=== PATIENT | female | born 1980 | race Caucasian/White ===

== ENCOUNTER 2017-09-21 15:33 | Emergency (ER) | payer OTHER ==
--- NOTE | 2017-09-21 15:44 | PDOC ---
Rapid Medical Evaluation Time Seen by Provider: 09/21/17 15:41 Medical Evaluation: Allergies Allergy/AdvReac Type Severity Reaction Status Date / Time No Known Allergies Allergy Verified 04/17/14 21:23 I have performed a brief in-person evaluation of this patient. The patient presents with a chief complaint of: chest tightness with movement/ working out, palpitations, wheezing x "a few weeks". 1/2 pack per day smoker. prior history of anxiety with similar symptoms - was worked up by cleaning team member everything normal. wants an EKG Pertinent physical exam findings: lungs are CTA. RRR I have ordered the following: hcg, ekg The patient will proceed to the ED for further evaluation.
[2017-09-21 15:49] VITALS: BMI 24.0
[2017-09-21] MEDS ORDERED: ALBUTEROL SO4 2.5/IPRATROPIUM 0.5 INH SOL 3 ML VIAL.NEB. NEB ONE ×2 (16:47→17:01)
--- NOTE | 2017-09-21 16:52 | PDOC ---
History of Present Illness - General Chief Complaint: Shortness of Breath Stated Complaint: CHEST TIGHTNESS, WHEEZING Time Seen by Provider: 09/21/17 15:41 History Source: Patient Exam Limitations: No Limitations - History of Present Illness Initial Comments: 09/21/17 19:19 Patient is a 36 year old female with a significant past medical history of Asthma (as child), who presents to the ED wit complaints of shortness of breath that began 2 weeks ago. Patient reports experiencing intermittent episodes of Sob and associated chest tightness that she states has become more frequent over time. She reports experiencing chest tightness and associated palpitations , that is increased in intensity when smoking cigarettes, drinking alcohol and exercising. Patient reports experiencing intermittent episodes of fatigue but is unsure if it is related to her chest tightness. Patient states she has been dieting heavily for the last few months and is worried that it is related to her symptoms. She reports ingestion on average 700 calories per day. Patient states she has tried to see her PCP twice in last month, but states she is unable to schedule appointment until October. Denies nausea, vomiting. Denies fevers, chills. Denies contact with sick individuals, out of state travelling. Denies diarrhea, constipation, dysuria, hematuria. Denies any other symptoms. Pt denies any leg swelling, hemoptysis. Not on OCPs. Allergies: None Social history: Current smoker. Social drinker. No illicit drugs. Surgical history: none PMD: Dr. James Pedroza Past History - Past Medical History Allergies/Adverse Reactions: Allergies Allergy/AdvReac Type Severity Reaction Status Date / Time No Known Allergies Allergy Verified 09/21/17 15:41 Home Medications: Ambulatory Orders Albuterol Sulfate Inhaler - [Ventolin HFA Inhaler -] 1 - 2 inh PO Q4H PRN #1 inhaler 09/21/17 Asthma: Yes COPD: No - Immunization History Immunization Up to Date: Yes - Suicide/Smoking/Psychosocial Hx Smoking History: Current every day smoker Have you smoked in the past 12 months: Yes Number of Cigarettes Smoked Daily: 10 Information on smoking cessation initiated: No Hx Alcohol Use: Yes (occasion) Substance Use Type: None Review of Systems - Review of Systems Able to Perform ROS?: Yes Comments:: 09/21/17 19:19 CONSTITUTIONAL: +Fatigue No reported: Fever, Chills, Diaphoresis, Malaise, Loss of Appetite HEENT: No reported: Rhinorrhea, Nasal Congestion, Throat Pain, Throat Swelling, Difficulty Swallowing, Mouth Swelling, Ear Pain, Eye Pain, Visual Changes CARDIOVASCULAR: +chest tightness. +Palpitations. No reported:, Syncope,, Irregular Heart Rate, Lightheadedness, Peripheral Edema RESPIRATORY: +Shortness of breath. No reported: Cough, SOB with Exertion, Orthopnea, Wheezing, Stridor, Hemoptysis GASTROINTESTINAL: No reported: Abdominal pain, Abdominal Distension, Nausea, Vomiting, Diarrhea, Constipation, Melena, Hematochezia GENITOURINARY: No reported: Dysuria, Frequency, Urgency, Hesitancy, Flank Pain, Genital Pain MUSCULOSKELETAL: No reported: Myalgia, Arthralgia, Joint Swelling, Back pain, Neck Pain SKIN: No reported: Rash, Itching, Pallor HEMATOLOGIC/IMMUNOLOGIC: No reported: Easy Bleeding, Easy Bruising, Lymphadenopathy, Frequent infections ENDOCRINE: No reported: Unexplained Weight Gain, Unexplained Weight Loss, Heat Intolerance , Cold Intolerance NEUROLOGIC: No reported: Headache, Focal Weakness, Paresthesias, Vertigo, Lightheadedness, Unsteady Gait, Seizure, Mental Status Changes, Incontinence PSYCHIATRIC: No reported: Anxiety, Depression *Physical Exam - Vital Signs Last Vital Signs Temp Pulse Resp BP Pulse Ox 97.7 F 81 19 127/71 98 09/21/17 15:42 09/21/17 15:42 09/21/17 15:42 09/21/17 15:42 09/21/17 15:42 - Physical Exam Comments: 09/21/17 19:20 GENERAL: The patient is awake, alert, and fully oriented, Nontoxic - in no acute distress. HEAD: Normocephalic, atraumatic. EYES: extraocular movements intact, sclera anicteric, conjunctiva clear. ENT: Normal voice, Moist mucous membranes. NECK: Normal range of motion, No JVD LUNGS: +scattered wheezing. +Speaking in complete sentences. No respiratory distress. no rhonchi, no rales. HEART: Regular rate and rhythm, normal S1 and S2 without murmur, rub or gallop. ABDOMEN: Soft, nontender, normoactive bowel sounds. No guarding, no rebound. No masses. No CVA tenderness EXTREMITIES: +No accessory muscle use. No pitting edema. Negative homans sign Normal range of motion, no edema. No clubbing or cyanosis. No cords, erythema, or tenderness. NEUROLOGICAL: No facial asymmetry, Normal speech, normal gait. PSYCH: Normal mood, normal affect. SKIN: Warm, Dry, normal turgor. Heart Score/ECG Review - ECG Impressions Comment:: 09/21/17 18:49 Twelve-lead EKG was performed and reviewed by me. There is normal sinus rhythm with a normal rate. Rate of 82 The intervals are normal. There are no ST or T wave abnormalities. ED Treatment Course - LABORATORY CBC & Chemistry Diagram: 09/21/17 17:06 09/21/17 17:06 Medical Decision Making - Medical Decision Making 09/21/17 16:48 36y F no pmhx presents iwth complaint of chest tightness and sob. The patient denies any chest pain, endorses occasional chest tightness and shortness of breath, patient does have mild coughing occasionally but this is chronic for the pt and not significant sdifferent from her baseline. no recent uri. she also endorses an extreme diet for the past few months where she is only eating around 700 calories on exam pt has scattered wheezing in her lungs. she is no acut distress abd soft nontender cardiac exam unremarkable suspect asthma/copd will give her a neb will ck basic labs to r/o anemia and metabolic derangement due to her extremit diet A portion of this note was documented by scribe services under my direction. I have reviewed the details of the note, within reason, and agree with the documentation with the following case summary and management plan written by me 09/21/17 18:50 The patient's labs were reviewed KG reviewed Patient is feeling improved, I will discharge patient with PMD follow-up and return precautions Give the patient an albuterol as needed Will defer nebulizers as the patient improved after 1 neb. I discussed the physical exam findings, ancillary test results and final diagnoses with the patient. I answered all of the patient's questions. The patient was satisfied with the care received and felt comfortable with the discharge plan and treatment plan. The patient will call their primary care physician within 24 hours to arrange follow-up and will return to the Emergency Department with any new, persistent or worsening symptoms. *DC/Admit/Observation/Transfer Diagnosis at time of Disposition: Wheezing - Discharge Dispostion Disposition: HOME Condition at time of disposition: Improved Admit: No - Prescriptions Prescriptions: Albuterol Sulfate Inhaler - [Ventolin HFA Inhaler -] 1 - 2 inh PO Q4H PRN #1 inhaler PRN Reason: Shortness Of Breath - Referrals Referrals: James Pedroza MD [Primary Care Provider] - - Patient Instructions Printed Discharge Instructions: DI for Asthma -- Adult Additional Instructions: Return to the emergency department immediately with ANY new, persistent or worsening symptoms. You MUST call and follow up with your doctor tomorrow for further evaluation of your symptoms. Results were discussed with you. Please make sure your doctor reviews the results of your emergency evaluation. If you had any xrays during your visit, it was read preliminarily by myself, a Radiologist will review it and if there are any additional findings we will call you. - Post Discharge Activity
[2017-09-21 17:16] LABS: BASO % 0.9 % (0-2.0); EOS % 0.9 % (0-4.5); HEMATOCRIT 37.9 % (32.4-45.2); HEMOGLOBIN 12.4 GM/dL (10.7-15.3); LYMPH % 22.7 % (8-40); MCH 29.3 pg (25.7-33.7); MCHC 32.8 g/dl (32.0-36.0); MEAN CELL VOLUME 89.5 fl (80-96); MEAN PLT VOLUME 6.8 fl (7.5-11.1); MONO % 3.2 % (3.8-10.2); NEUT % 72.3 % (42.8-82.8); PLATELET COUNT 275 K/MM3 (134-434); RBC 4.23 M/mm3 (3.60-5.2); RDW 13.3 % (11.6-15.6); WHITE BLOOD COUNT 11.4 K/mm3 (4.0-10.0)
[2017-09-21 17:43] VITALS: BP 106/60; PULSE 80; TEMP 98.5
[2017-09-21 17:55] LABS: ALBUMIN 3.7 g/dl (3.4-5.0); ALK PHOS 69 U/L (45-117); ANION GAP 6 (8-16); BILIRUBIN,TOTAL 0.4 mg/dL (0.2-1.0); BLOOD UREA NITROGEN 8 mg/dL (7-18); CALCIUM 8.8 mg/dL (8.5-10.1); CHLORIDE 102 mmol/L (98-107); CO2 29 mmol/L (21-32); CREATININE 0.8 mg/dL (0.55-1.02); GLUCOSE,RANDOM 89 mg/dL (74-106); POTASSIUM 4.2 mmol/L (3.5-5.1); SGOT/AST 15 U/L (15-37); SGPT/ALT 17 U/L (12-78); SODIUM 137 mmol/L (136-145); TOT PROT 7.3 g/dl (6.4-8.2)
--- NOTE | 2017-09-23 11:11 | EKG ---
Test Reason : Blood Pressure : / mmHG Vent. Rate : 082 BPM Atrial Rate : 082 BPM P-R Int : 142 ms QRS Dur : 090 ms QT Int : 376 ms P-R-T Axes : 052 091 027 degrees QTc Int : 439 ms NORMAL SINUS RHYTHM RIGHTWARD AXIS BORDERLINE ECG NO PREVIOUS ECGS AVAILABLE Confirmed by CELESTINE BHARDWAJ, MCKAYLA ([id number]) on 09/23/2017 11:10:43 AM Referred By: Confirmed By:MCKAYLA SPRAGUE MD
== END 2017-09-21 19:05 | disposition home or self-care (01) ==
LOC: JER 15:33
PROC: 3E0F7GC Introduction of Other Therapeutic Substance into Respiratory Tract, Via Natural or Artificial Opening (ICD-10-PCS; principal; 2017-09-21)
DX: R06.2 Wheezing (principal); Z87.09 Personal history of other diseases of the respiratory system
CPT/HCPCS: 36415; 80053; 84703; 85025; 93005; 93010; 94640; 99282-25

== ENCOUNTER 2018-02-28 14:56 | Emergency (ER) | payer OTHER ==
--- NOTE | 2018-02-28 15:04 | PDOC ---
Rapid Medical Evaluation Time Seen by Provider: 02/28/18 14:59 Medical Evaluation: Allergies Allergy/AdvReac Type Severity Reaction Status Date / Time No Known Allergies Allergy Verified 09/21/17 15:41 02/28/18 14:59 Pt with PMH of GERD presents to the ED with two days of chest tightness. She states that the pain comes and goes. She states she feels a bubbling feeling every hour. Smokes half a pack a day. Exam: VSS, AAOx3, RRR, CTAB Orders: EKG, CBC, CMP, Troponin,PT/INR, urine, CXR, iv insert Pt to proceed to the ED for further evaluation Discharge Disposition - Diagnosis Chest pain - Referrals - Patient Instructions - Post Discharge Activity
[2018-02-28 15:34] LABS: BASO % 1.1 % (0-2.0); EOS % 1.2 % (0-4.5); HEMATOCRIT 34.3 % (32.4-45.2); HEMOGLOBIN 11.3 GM/dL (10.7-15.3); LYMPH % 20.8 % (8-40); MEAN CELL VOLUME 87.7 fl (80-96); MEAN PLT VOLUME 6.8 fl (7.5-11.1); MONO % 4.8 % (3.8-10.2); NEUT % 72.1 % (42.8-82.8); PLATELET COUNT 318 K/MM3 (134-434); RBC 3.91 M/mm3 (3.60-5.2); RDW 13.8 % (11.6-15.6)
[2018-02-28 15:59] LABS: ALBUMIN 3.7 g/dl (3.4-5.0); ANION GAP 9 (8-16); BLOOD UREA NITROGEN 12 mg/dL (7-18); CALCIUM 8.3 mg/dL (8.5-10.1); CHLORIDE 105 mmol/L (98-107); CO2 24 mmol/L (21-32); CREATININE 0.8 mg/dL (0.55-1.02); GLUCOSE,RANDOM 84 mg/dL (74-106); POTASSIUM 3.8 mmol/L (3.5-5.1); SGOT/AST 18 U/L (15-37); SGPT/ALT 23 U/L (12-78); SODIUM 138 mmol/L (136-145)
[2018-02-28 16:00] LABS: URINE APPEARANCE SLCLOUDY; URINE BILIRUBIN NEGATIVE (<2.0 mg/dL); URINE COLOR YELLOW; URINE GLUCOSE (UA) NEGATIVE (NEGATIVE); URINE KETONE NEGATIVE (NEGATIVE); URINE NITRITE NEGATIVE (NEGATIVE); URINE PROTEIN NEGATIVE (NEGATIVE); URINE UROBILINOGEN NEGATIVE mg/dL (0.2-1.0)
[2018-02-28 16:03] LABS: ALK PHOS 70 U/L (45-117); BILIRUBIN,TOTAL 0.7 mg/dL (0.2-1.0); TOT PROT 7.3 g/dl (6.4-8.2)
[2018-02-28 16:04] LABS: INR 1.12 (0.82-1.09); PROTHROMBIN TIME (PATIENT) 12.7 SEC (9.7-13.0)
[2018-02-28 16:09] LABS: URINE LEUK ESTERASE 2+ (NEGATIVE)
--- NOTE | 2018-02-28 16:15 | PDOC ---
Attending Attestation - HPI HPI: 02/28/18 17:18 The patient is a 37 year old female with history of cigarette smoking who presents to the ED complaining of intermittent palpitations. No chest pain, lightheadedness, or shortness of breath. No peripheral edema. No headache or blurred vision. Denies recent travel, long periods of immobilization, or OCP use. Does endorse increased caffeine, EtOH consumption recently. - Physicial Exam PE: 02/28/18 17:24 Constitutional: Awake, alert, oriented. No acute distress. Head: Normocephalic. Atraumatic Eyes: PERRL. EOMI. Conjunctivae are not pale. ENT: Mucous membranes are moist and intact. Posterior pharynx without exudates or erythema. Uvula midline. Neck: Supple. Full ROM. No lymphadenopathy. Cardiovascular: Regular rate. Regular rhythm. S1, S2 regular. Distal pulses are 2+ and symmetric. Pulmonary/Chest: No evidence of respiratory distress. Clear to auscultation bilaterally No wheezing, rales or rhonchi. Abdominal: Soft and non-distended. There is no tenderness. No rebound, guarding or rigidity. No organomegaly. No palpable masses. Good bowel sounds. Back: No CVA tenderness. Musculoskeletal: No edema. No cyanosis. No clubbing. Full range of motion in all extremities. Nocalf tenderness. Radial/pedal pulses are intact and 2+ bilaterally Skin: Skin is warm and dry. No petechiae. No purpura. Neurological: Alert and oriented to person, place, and time. Cranial nerves II -XII are grossly intact. Normal speech. Strength is grossly symmetric. No sensory deficits. Psychiatric: Good eye contact. Normal interaction, affect and behavior. - Medical Decision Making 02/28/18 17:24 Documentation prepared by Emma Morton, acting as medical microbiologist for Tamara Jo DO. <Emma Morton - Last Filed: 02/28/18 17:22> - Resident Resident Name: Jhoan Vincent - ED Attending Attestation I have performed the following: I have examined & evaluated the patient, The case was reviewed & discussed with the resident, I agree w/resident's findings & plan, Exceptions are as noted - Medical Decision Making 02/28/18 16:15 I, Dr. Tamara Jo DO, attest that this document has been prepared under my direction and personally reviewed by me in its entirety. I further attest, that it accurately reflects all work, treatment, procedures and medical decision -making performed by me. 02/28/18 17:03 a/p: 37yo female with palpitations -suspect from increased etoh use, caffeine use, soda use, and decreased water intake -no cp -brief fluttering in the chest -no PE risk factors -will send labs, tsh, dimer, ekg, cxr -will monitor and reassess -will hdyrate with ivf hydration 02/28/18 21:05 dimer negative tsh negative stable for d/c to home pt feeling better after ivf hydratin discussed stopping caffeine use and etoh use discussed smoking cessation <Tamara Jo - Last Filed: 02/28/18 21:05> Heart Score/ECG Review - ECG Intrepretation Comment:: 02/28/18 17:05 sinus at 73, R dominguez axis, nl interval, t wave inversions V3-4, no other acute changes <Tamara Jo - Last Filed: 02/28/18 21:05>
[2018-02-28 16:18] VITALS: TEMP 98
[2018-02-28 16:21] LABS: EPI CELLS FEW /HPF (FEW); URINE BACTERIA RARE /hpf (NONE SEEN); URINE MUCUS RARE
[2018-02-28] MEDS ORDERED: SODIUM CHLORIDE 0.9% 1000 ML INFUS.BAG IV ONE (16:49)
--- NOTE | 2018-02-28 17:28 | PDOC ---
History of Present Illness - General Chief Complaint: Chest Pain Stated Complaint: CHEST TIGHTNESS Time Seen by Provider: 02/28/18 14:59 History Source: Patient Exam Limitations: No Limitations - History of Present Illness Initial Comments: 02/28/18 17:21 Patient is a 37F active smoker who is here toady complaining of palpitations over the past several days. She endorses associated anxiety with these episodes of palpitations, and they last for about 5 minutes. Denies chest pain. Endorses shortness of breath with walking up hills. Denies fevers, chills, nausea, vomiting. Denies prior blood clots, leg swelling, control, recent travel. Patient states that she has a PCP Dr Keith for further follow up. Past History - Past Medical History Allergies/Adverse Reactions: Allergies Allergy/AdvReac Type Severity Reaction Status Date / Time No Known Allergies Allergy Verified 02/28/18 15:05 Home Medications: Ambulatory Orders Albuterol Sulfate Inhaler - [Ventolin HFA Inhaler -] 1 - 2 inh PO Q4H PRN #1 inhaler 09/21/17 Asthma: Yes (CHILDHOOD) COPD: No DVT: No - Immunization History Immunization Up to Date: Yes - Suicide/Smoking/Psychosocial Hx Smoking History: Current every day smoker Have you smoked in the past 12 months: Yes Number of Cigarettes Smoked Daily: 10 Information on smoking cessation initiated: Yes 'Breaking Loose' booklet given: 02/28/18 Hx Alcohol Use: Yes (occasion) Substance Use Type: None Review of Systems - Review of Systems Comments:: 02/28/18 17:28 GENERAL/CONSTITUTIONAL: No fever or chills. No weakness. HEAD, EYES, EARS, NOSE AND THROAT: No change in vision. No sore throat. CARDIOVASCULAR: No chest pain or shortness of breath. +palpitatisn RESPIRATORY: No cough, wheezing, or hemoptysis. GASTROINTESTINAL: No nausea, vomiting, diarrhea or constipation. GENITOURINARY: No dysuria, frequency, or change in urination. MUSCULOSKELETAL: No joint or muscle swelling or pain. No neck or back pain. SKIN: No rash NEUROLOGIC: No headache, vertigo, loss of consciousness, or change in strength/ sensation. ENDOCRINE: No increased thirst. No abnormal weight change HEMATOLOGIC/LYMPHATIC: No anemia, easy bleeding, or history of blood clots. ALLERGIC/IMMUNOLOGIC: No hives or skin allergy. *Physical Exam - Vital Signs Last Vital Signs Temp Pulse Resp BP Pulse Ox 98.0 F 74 16 97/81 98 02/28/18 16:17 02/28/18 16:17 02/28/18 16:17 02/28/18 16:17 02/28/18 16:17 - Physical Exam Comments: 02/28/18 17:28 GENERAL: Awake, alert, and fully oriented, in no acute distress HEAD: No signs of trauma, normocephalic, atraumatic EYES: PERRLA, EOMI, sclera anicteric, conjunctiva clear ENT: Auricles normal inspection, hearing grossly normal, nares patent, oropharynx clear without exudates. Moist mucosa NECK: Normal ROM, supple, no lymphadenopathy, JVD, or masses LUNGS: No distress, speaks full sentences, clear to auscultation bilaterally HEART: Regular rate and rhythm, normal S1 and S2, no murmurs, rubs or gallops, peripheral pulses normal and equal bilaterally. ABDOMEN: Soft, nontender, normoactive bowel sounds. No guarding, no rebound. No masses EXTREMITIES: Normal inspection, Normal range of motion, no edema. No clubbing or cyanosis. NEUROLOGICAL: Cranial nerves II through XII grossly intact. Normal speech, normal gait, no focal sensorimotor deficits SKIN: Warm, Dry, normal turgor, no rashes or lesions noted. ED Treatment Course - LABORATORY CBC & Chemistry Diagram: 02/28/18 15:10 02/28/18 15:10 - ADDITIONAL ORDERS Additional order review: Laboratory Results 02/28/18 02/28/18 02/28/18 16:17 15:48 15:48 PT with INR INR Sodium Potassium Chloride Carbon Dioxide Anion Gap BUN Creatinine Creat Clearance w eGFR Random Glucose Calcium Total Bilirubin AST ALT Alkaline Phosphatase Creatine Kinase Creatine Kinase Index CK-MB (CK-2) Troponin I Total Protein Albumin TSH 2.00 Urine Color Yellow Urine Appearance Slcloudy Urine pH 5.0 Ur Specific [place] 1.025 Urine Protein Negative Urine Glucose (UA) Negative Urine Ketones Negative Urine Blood 2+ H Urine Nitrite Negative Urine Bilirubin Negative Urine Urobilinogen Negative Ur Leukocyte Esterase 2+ H Urine WBC (Auto) 1 Urine RBC (Auto) 16 Ur Epithelial Cells Few Urine Bacteria Rare Urine Mucus Rare Urine HCG, Qual Negative 02/28/18 02/28/18 02/28/18 15:30 15:10 15:10 PT with INR 12.70 INR 1.12 Sodium 138 Potassium 3.8 Chloride 105 Carbon Dioxide 24 Anion Gap 9 BUN 12 Creatinine 0.8 Creat Clearance w eGFR > 60 Random Glucose 84 Calcium 8.3 L Total Bilirubin 0.7 AST 18 ALT 23 Alkaline Phosphatase 70 Creatine Kinase Cancelled 228 H Creatine Kinase Index 0.7 CK-MB (CK-2) 1.78 Troponin I Cancelled < 0.02 Total Protein 7.3 Albumin 3.7 TSH Urine Color Urine Appearance Urine pH Ur Specific [place] Urine Protein Urine Glucose (UA) Urine Ketones Urine Blood Urine Nitrite Urine Bilirubin Urine Urobilinogen Ur Leukocyte Esterase Urine WBC (Auto) Urine RBC (Auto) Ur Epithelial Cells Urine Bacteria Urine Mucus Urine HCG, Qual 02/28/18 15:10 RBC 3.91 MCV 87.7 MCHC 33.0 RDW 13.8 MPV 6.8 L Neutrophils % 72.1 Lymphocytes % 20.8 Monocytes % 4.8 Eosinophils % 1.2 Basophils % 1.1 - Medications Given in the ED: ED Medications Discontinued Medications Generic Name Dose Route Start Last Admin Trade Name Freq PRN Reason Stop Dose Admin Sodium Chloride 1,000 ml 02/28/18 16:49 02/28/18 16:57 Normal Saline - IV 02/28/18 16:50 1,000 ml ONCE ONE Administration Medical Decision Making - Medical Decision Making 02/28/18 17:29 Patient is 37F with history of smoking here today complaining of palpitations. Vital signs normal and stable in the ED. DDx includes, but is not limited to: arrhythmia, acs, anxiety. Patient PERCs out of PE. No chest pain. Will do cardiac workup. EKG shows normal sinus rhythm with rate of 73. Rightward axis with t wave inversions in V3/V4 and III. No st elevations/depressiosn. Normal intervals. Concern for PE elevated due to right heart strain EKG. Still PERCs out so believe she is low risk. Will add on d-dimer. 02/28/18 17:32 Laboratory Tests 02/28/18 02/28/18 02/28/18 15:10 15:10 15:10 WBC 13.0 H Hgb 11.3 Plt Count 318 INR 1.12 Troponin I < 0.02 TSH Ur Leukocyte Esterase Urine WBC (Auto) Urine HCG, Qual 02/28/18 02/28/18 02/28/18 15:48 15:48 16:17 WBC Hgb Plt Count INR Troponin I TSH 2.00 Ur Leukocyte Esterase 2+ H Urine WBC (Auto) 1 Urine HCG, Qual Negative CBC shows leukocytosis. UA negative. Upreg negative. TSH negative. INR normal. D -dimer pending. 02/28/18 18:11 CXR shows no acute processes 02/28/18 18:35 D-dimer negative. Will discharge with instructions to follow with PCP. *DC/Admit/Observation/Transfer Diagnosis at time of Disposition: Palpitations - Discharge Dispostion Disposition: HOME Condition at time of disposition: Good Decision to Admit order: No - Referrals Referrals: James Pedroza MD [Primary Care Provider] - - Patient Instructions Printed Discharge Instructions: DI for Palpitations Additional Instructions: Please return if you have any new, worsening or concerning symptoms. Please follow up with your primary care physician in the next week. - Post Discharge Activity
[2018-02-28 18:14] VITALS: BP 119/57; PULSE 73
--- NOTE | 2018-03-01 11:35 | EKG ---
Test Reason : Blood Pressure : / mmHG Vent. Rate : 073 BPM Atrial Rate : 073 BPM P-R Int : 142 ms QRS Dur : 088 ms QT Int : 368 ms P-R-T Axes : 053 091 024 degrees QTc Int : 405 ms NORMAL SINUS RHYTHM RIGHTWARD AXIS BORDERLINE ECG WHEN COMPARED WITH ECG OF 21-SEP-2017 15:55, NO SIGNIFICANT CHANGE WAS FOUND Confirmed by AUGUSTINA BHARDWAJ, YARI ([id number]) on 03/01/2018 11:34:50 AM Referred By: Confirmed By:YARI JACKMAN MD
== END 2018-02-28 18:39 | disposition home or self-care (01) ==
LOC: JER 14:56
DX: R00.2 Palpitations (principal); F17.210 Nicotine dependence, cigarettes, uncomplicated
CPT/HCPCS: 36415; 71046-TC-FY; 80053; 81003; 81015; 82550; 82553; 84443; 84484; 84703; 85025; 85379; 85610; 93005; 93010; 99284-25; J7030

== ENCOUNTER 2018-04-24 14:04 | Emergency (ER) | payer OTHER ==
[2018-04-24 14:19] VITALS: TEMP 97.8; BMI 24.9
--- NOTE | 2018-04-24 14:25 | PDOC ---
Rapid Medical Evaluation Chief Complaint: Syncope/Near Syncope Time Seen by Provider: 04/24/18 14:18 Medical Evaluation: Allergies Allergy/AdvReac Type Severity Reaction Status Date / Time No Known Allergies Allergy Verified 04/24/18 14:19 Vital Signs Temp Pulse Resp BP Pulse Ox 97.8 F 90 18 127/79 100 04/24/18 14:15 04/24/18 14:15 04/24/18 14:15 04/24/18 14:15 04/24/18 14:15 04/24/18 14:20 I have performed a brief in-person evaluation of this patient. The patient presents with a chief complaint of:chest tightness and "fluttering" w/ syncope at work today. H/o anxiety, asthma (in childhood), smoker (1/d ppd x 9 years), s/p multiple ED visits for same w/ no clear dx. Seen by cards recently w/ w/u but awaiting results Pertinent physical exam findings:Stable w/ clear chest/lungs I have ordered the following:ekg/cxr/labs The patient will proceed to the ED for further evaluation. Discharge Disposition - Diagnosis Syncope Qualifiers: Syncope type: unspecified Qualified Code(s): R55 - Syncope and collapse - Referrals - Patient Instructions - Post Discharge Activity
[2018-04-24 14:57] LABS: BASO % 0.4 % (0-2.0); HEMATOCRIT 37.5 % (32.4-45.2); HEMOGLOBIN 12.4 GM/dL (10.7-15.3); MCH 29.2 pg (25.7-33.7); MEAN CELL VOLUME 88.7 fl (80-96); MEAN PLT VOLUME 6.7 fl (7.5-11.1); MONO % 4.9 % (3.8-10.2); NEUT % 74.7 % (42.8-82.8); PLATELET COUNT 328 K/MM3 (134-434); RBC 4.22 M/mm3 (3.60-5.2); RDW 14.3 % (11.6-15.6); WHITE BLOOD COUNT 12.4 K/mm3 (4.0-10.0)
[2018-04-24 15:21] LABS: ALBUMIN 3.9 g/dl (3.4-5.0); ANION GAP 6 MMOL/L (8-16); BILIRUBIN,TOTAL 0.2 mg/dL (0.2-1); BLOOD UREA NITROGEN 13 mg/dL (7-18); CALCIUM 9.8 mg/dL (8.5-10.1); CHLORIDE 106 mmol/L (98-107); CO2 25 mmol/L (21-32); CREATININE 0.8 mg/dL (0.55-1.3); GLUCOSE,RANDOM 92 mg/dL (74-106); SGPT/ALT 20 U/L (13-61); SODIUM 137 mmol/L (136-145); TOT PROT 7.9 g/dl (6.4-8.2)
[2018-04-24 15:32] LABS: ALK PHOS 65 U/L (45-117); SGOT/AST 15 U/L (15-37)
--- NOTE | 2018-04-24 16:45 | PDOC ---
History of Present Illness <Mary Glover - Last Filed: 04/24/18 18:02> - General History Source: Patient Exam Limitations: No Limitations <Mahogany Sarah Sammie - Last Filed: 04/25/18 17:32> - General Chief Complaint: Syncope/Near Syncope Stated Complaint: SYNCOPE Time Seen by Provider: 04/24/18 14:18 - History of Present Illness Initial Comments: 04/24/18 18:02 The patient is a 37 year old female, with significant past medical history of anxiety and childhood asthma, who presents to the emergency room today complaining of SOB, nausea, and syncope at work today at 12:30p. She reports that the syncopal episode was brief and only lasted a couple of minutes. The patient has experienced similar episodes in the past. She was evaluated by a filter press operator this month. As per the patient the holter monitor was unremarkable. The patient notes that she had a cold last week. She has been eating and drinking normally, but less so this week. The patient also reports daily caffeine intake. +smoker. Also no OCP use, h/o blood clots or anemia. Denies chest pain, tightness, cough. Denies fever, chills, vomiting. Denies headache, lightheadedness, changes in vision Allergies: NKA Social hx: tobacco use (1ppd x 9 years). Caffeine intake daily. Rn Corrections: Pt. cannot recall their name (Mary Glover) Past History <Mary Glover - Last Filed: 04/24/18 18:02> - Past Medical History Asthma: Yes (CHILDHOOD) COPD: No DVT: No - Immunization History Immunization Up to Date: Yes - Suicide/Smoking/Psychosocial Hx Smoking History: Current every day smoker Have you smoked in the past 12 months: Yes Number of Cigarettes Smoked Daily: 10 Information on smoking cessation initiated: No 'Breaking Loose' booklet given: 02/28/18 Hx Alcohol Use: Yes (occasion) Substance Use Type: None <Cole Sarahjacob Cochran - Last Filed: 04/25/18 17:32> - Past Medical History Allergies/Adverse Reactions: Allergies Allergy/AdvReac Type Severity Reaction Status Date / Time No Known Allergies Allergy Verified 04/24/18 14:19 Home Medications: Ambulatory Orders Albuterol Sulfate Inhaler - [Ventolin HFA Inhaler -] 1 - 2 inh PO Q4H PRN #1 inhaler 09/21/17 Review of Systems - Review of Systems Able to Perform ROS?: Yes <Bennett Gloverssica - Last Filed: 04/24/18 18:02> <Mahogany Sarah - Last Filed: 04/25/18 17:32> - Review of Systems Comments:: 04/24/18 18:02 GENERAL/CONSTITUTIONAL: No fever or chills. No weakness. no sweats. HEAD, EYES, EARS, NOSE AND THROAT: No difficulty swallowing. No congestion. CARDIOVASCULAR: No chest pain or palpitations, or edema. +syncope RESPIRATORY: +SOB, No cough, wheezing, or hemoptysis. GASTROINTESTINAL +nausea. No vomiting. No diarrhea or constipation. No bloody stools. GENITOURINARY: No hematuria, dysuria, frequency, urgency or other changes. MUSCULOSKELETAL: No joint or muscle swelling or pain. No neck or back pain. SKIN: No rash or changes in skin color or lesions. NEUROLOGIC: +syncopal episode. No headache, vertigo, loss of consciousness, or change in strength/sensation. No gait instability. HEMATOLOGIC/LYMPHATIC: No anemia, easy bruising/bleeding, or history of blood clots. ALLERGIC/IMMUNOLOGIC: No allergies All other systems reviewed and negative, or as documented in HPI. (Mary Glover) *Physical Exam <Bennett Gloverssica - Last Filed: 04/24/18 18:02> <Mahogany Sarah - Last Filed: 04/25/18 17:32> - Vital Signs Last Vital Signs Temp Pulse Resp BP Pulse Ox 97.8 F 87 18 117/80 97 04/24/18 14:15 04/24/18 18:22 04/24/18 18:22 04/24/18 18:22 04/24/18 18:22 - Physical Exam Comments: 04/24/18 18:02 General: Well appearing, awake and alert, NAD. HEENT: NCAT, PERRL, EOMI, clear conjunctiva, anicteric, moist mucus membranes, clear oropharynx, no oral lesions.. Neck: neck supple, FROM Resp: CTAB, normal and even respirations, no respiratory distress CVS: RRR, no murmurs, 2+ peripheral pulses throughout, no peripheral edema Abdomen: soft, NTND, no peritoneal signs. Back: nontender, normal inspection and ROM MSK: no edema, FOFANA x4, ROM intact. No clubbing or cyanosis. normal bulk and tone. Neuro: alert, oriented appropriately; no focal neurologic deficits. SILT, 5/5 distal and prox strength in all extrem. speech clear. Skin: warm and well perfused, cap refill <2 sec, normal color (ShelleyartemMary) Heart Score/ECG Review <Mary Glover - Last Filed: 04/24/18 18:02> <Mahogany Sarah - Last Filed: 04/25/18 17:32> - ECG Impressions Comment:: 04/24/18 17:57 EKG normal sinus rhythm, no interval abnormalities, narrow QRS, ST segments and morphology normal. TWI in V1-V4, III, AVF, unchanged from prior (Mahogany Sarah) ED Treatment Course - LABORATORY CBC & Chemistry Diagram: 04/24/18 14:42 04/24/18 14:42 <Mary Glover - Last Filed: 04/24/18 18:02> - LABORATORY CBC & Chemistry Diagram: 04/24/18 14:42 04/24/18 14:42 <Mahogany Sarah - Last Filed: 04/25/18 17:32> - ADDITIONAL ORDERS Additional order review: 04/24/18 14:42 RBC 4.22 MCV 88.7 MCHC 33.0 RDW 14.3 MPV 6.7 L Neutrophils % 74.7 Lymphocytes % 19.0 Monocytes % 4.9 Eosinophils % 1.0 Basophils % 0.4 Medical Decision Making <Mary Glover - Last Filed: 04/24/18 18:02> <Mahogany Sarah - Last Filed: 04/25/18 17:32> - Medical Decision Making 04/24/18 17:57 37 YOF with asthma, smoker, anxiety presenting with syncopal episode. back to baseline. vitals wnl. well appearing, no fever. labs and lytes, trop negative. dimer negative, so lower suspicion and likelihood of PE/DVT/VTE. EKG normal sinus rhythm, no interval abnormalities, narrow QRS, ST segments and morphology normal. TWI in V1-V4, III, AVF, unchanged from prior preg test neg no head imaging at this time, as no direct head impact and witnessed syncopal event w/o neuro deficits, ambulatory and remains at normal alertness/ orientation. no pain currently. exam unremarkable. no urinary sx to suggest infection, defer ordering. no respiratory sx or fevers/cough/ no CXR indicated with clear lungs and no respiratory distress. also cautioned with increased caffeine intake. minimize stimulants/smoking, cessation advised also saw PMD/filter press operator several weeks ago with holter monitor, has not received full report yet but has been told syncope/palpitations were secondary to anxiety. Pt to be discharged in stable condition. Patient and family made aware of impression and plan, return precautions discussed (including but not limited to worsening pain or symptoms), fevers, or signs of infection, chest pain, respiratory distress, inability to tolerate oral intake, dehydration, syncope, or neurologic changes). Follow up with PMD and/or specialist as recommended, follow up information provided. continue with supportive care, avoid triggers and precipitants. All questions answered to patient's satisfaction and expressed understanding and comfort with this. 04/25/18 17:31 (Mahogany Sarah) *DC/Admit/Observation/Transfer <Mary Glover - Last Filed: 04/24/18 18:02> - Discharge Dispostion Decision to Admit order: No <Mahogany Sarah - Last Filed: 04/25/18 17:32> Diagnosis at time of Disposition: Syncope Qualifiers: Syncope type: unspecified Qualified Code(s): R55 - Syncope and collapse - Discharge Dispostion Disposition: HOME Condition at time of disposition: Improved - Referrals Referrals: [facility] [Provider Group] [facility] [Provider Group] Rajan Lobo MD [Staff Physician] - [facility] [Provider Group] - Patient Instructions Printed Discharge Instructions: DI for Syncope in Adults (Fainting) Additional Instructions: Your laboratory / imaging results were normal, including your cardiac enzymes and number for blood clot. EKG was unchanged w/o arrhythmia or abnormalities changed from prior. you had an episode of fainting, but you are back to normal which is reassuring. Follow up with your physician and consultants as instructed, filter press operator followup and referrals. take your medications as instructed, avoid intake excessively of alcohol or caffeine/sodas. stay well hydrated, eat and drink at all meals. Return if worsening symptoms including fevers, headache, vomiting, visual or hearing disturbances, abdominal pain, chest pain, shortness of breath, syncope, dehydration, inability to take things by mouth/vomiting, altered mental status, or worsening concerning symptoms. folllow up with your primary doctor and filter press operator for full results of your monitoring. return precautions discussed (including but not limited to worsening pain or symptoms), fevers, or signs of infection, chest pain, respiratory distress, inability to tolerate oral intake, dehydration, syncope, or neurologic changes) . Follow up with PMD and/or specialist as recommended, follow up information provided - Post Discharge Activity Forms/Work/School Notes: Back to Work - Attestations Scribe Attestion: 04/24/18 18:02 Documentation prepared by SUZETTE Ortiz, acting as site medical director for Mahogany Sarah MD. (Mary Glover)
[2018-04-24 18:22] VITALS: BP 117/80; PULSE 87
--- NOTE | 2018-04-25 09:57 | EKG ---
Test Reason : Blood Pressure : / mmHG Vent. Rate : 076 BPM Atrial Rate : 076 BPM P-R Int : 136 ms QRS Dur : 090 ms QT Int : 378 ms P-R-T Axes : 051 091 006 degrees QTc Int : 425 ms NORMAL SINUS RHYTHM WITH SINUS ARRHYTHMIA RIGHTWARD AXIS T WAVE ABNORMALITY, CONSIDER ANTERIOR ISCHEMIA ABNORMAL ECG WHEN COMPARED WITH ECG OF 28-FEB-2018 15:05, NO SIGNIFICANT CHANGE WAS FOUND Confirmed by CELESTINE BHARDWAJ, MCKAYLA ([id number]) on 04/25/2018 9:57:44 AM Referred By: Confirmed By:MCKAYLA SPRAGUE MD
== END 2018-04-24 18:23 | disposition home or self-care (01) ==
LOC: JER 14:04
DX: F17.210 Nicotine dependence, cigarettes, uncomplicated (principal)
CPT/HCPCS: 36415; 80053; 82550; 82553; 84484; 84703; 85025; 85379; 93005; 93010; 99285-25

== ENCOUNTER 2019-04-26 15:33 | Emergency (ER) | payer OTHER ==
[2019-04-26 15:43] VITALS: BP 118/81; PULSE 79; TEMP 97.5; BMI 24.9
--- NOTE | 2019-04-26 16:22 | PDOC ---
History of Present Illness - General Chief Complaint: Chest Pain Stated Complaint: CHEST PAIN Time Seen by Provider: 04/26/19 16:11 - History of Present Illness Initial Comments: 04/26/19 16:19 CHIEF COMPLAINT: fatigue/anxiety/chest discomfort HISTORY OF PRESENT ILLNESS: 38 yo F with hx of anxiety and asthma presents to ED with chest discomfort "for about a week." She reports that she quit smoking a week ago and started vaping, and since then she has started feeling lightheaded, flushed, dizzy, and nervous. She notes and episode of "extreme fatigue mixed with an anxiety attack" a few days ago and felt like she had to lie down. She is also concerned because she got her gums cleaned and she noticed that she spit up blood afterwards. Patient also notes that she is anxious about her health because her mother passed at the age of 51 from metastatic lung cancer and also had a hx of smoking. Patient denies any recent travel, surgeries, OCP use. PCP is Dr. James Pedroza. LMP began today. No recent travel or sick contacts. PAST MEDICAL HISTORY: anxiety, asthma FAMILY HISTORY: Denies SOCIAL HISTORY: 9 pack year smoking history, recent vape use. Denies alcohol, illicit drug use. SURGICAL HISTORY: Denies ALLERGIES: No known drug allergies REVIEW OF SYSTEMS General/Constitutional: Denies fever or chills. Denies weakness, weight change. HEENT: Denies change in vision. Denies ear pain or discharge. Denies sore throat. Cardiovascular: Intermittent chest pain, shortness of breath x 1 week, symptoms ongoing x 1 year. Respiratory: Denies cough, wheezing, or hemoptysis. Gastrointestinal: Denies nausea, vomiting, diarrhea or constipation. Denies rectal bleeding. Genitourinary: Denies dysuria, frequency, or change in urination. Musculoskeletal: Denies joint or muscle swelling or pain. Denies neck or back pain. Skin and breasts: Denies rash or easy bruising. Neurologic: Denies headache, vertigo, loss of consciousness, or loss of sensation. Psychiatric: "I know I'm an anxious person, and I can't stop thinking about the fact that my mom passed when she was so young, and I don't want to go that way. " PHYSICAL EXAM General Appearance: Anxious-appearing, pacing around room. Appropriately dressed. HEENT: EOMI, PERRLA, normal ENT inspection, normal voice, TMs normal, pharynx normal. No conjunctival pallor. No photophobia, scleral icterus. Neck: Supple. Trachea midline. No tenderness, rigidity, carotid bruit, stridor , lymphadenopathy, or thyromegaly. Respiratory/Chest: Lungs CTAB. No shortness of breath, chest tenderness, respiratory distress, accessory muscle use. No crackles, rales, rhonchi, stridor , wheezing, dullness Cardiovascular: RRR. S1, S2. No JVD, murmur, bradycardia, tachycardia. Vascular Pulses: Dorsalis-Pedis (R): 2+, Dorsalis-Pedis (L): 2+ Gastrointestinal/Abdominal: Normal bowel sounds. Abdomen soft, non-distended. No tenderness or rebound tenderness. No organomegaly, pulsatile mass, guarding , hernia, hepatomegaly, splenomegaly. Lymphatic: No adenopathy, tenderness. Musculoskeletal/Extremities: Normal inspection. FROM of all extremities, normal capillary refill. Pelvis Stable. No CVA tenderness. No tenderness to extremities, pedal edema, swelling, erythema or deformity. Integumentary: Appropriate color, dry, warm. No cyanosis, erythema, jaundice or rash Neurologic: woods boss II-XII intact. Fully oriented, alert. Appropriate mood/affect. Motor strength 5/5. No appreciable EOM palsy, facial droop or sensory deficit. 04/26/19 16:39 Past History - Past Medical History Allergies/Adverse Reactions: Allergies Allergy/AdvReac Type Severity Reaction Status Date / Time No Known Allergies Allergy Verified 04/26/19 15:43 Home Medications: Ambulatory Orders Hydroxyzine HCl 25 mg PO TID PRN #30 tablet 04/26/19 Hydroxyzine HCl 25 mg PO TID PRN #30 tablet 04/26/19 Asthma: Yes (CHILDHOOD) COPD: No DVT: No - Immunization History Immunization Up to Date: Yes - Suicide/Smoking/Psychosocial Hx Smoking History: Current every day smoker Have you smoked in the past 12 months: Yes Number of Cigarettes Smoked Daily: 2 Information on smoking cessation initiated: No 'Breaking Loose' booklet given: 02/28/18 Hx Alcohol Use: Yes Drug/Substance Use Hx: No Substance Use Type: None *Physical Exam - Vital Signs Last Vital Signs Temp Pulse Resp BP Pulse Ox 97.5 F L 79 16 118/81 97 04/26/19 15:36 04/26/19 15:36 04/26/19 15:36 04/26/19 15:36 04/26/19 15:36 ED Treatment Course - LABORATORY CBC & Chemistry Diagram: 04/26/19 16:52 04/26/19 16:52 - ADDITIONAL ORDERS Additional order review: Laboratory Results 04/26/19 04/26/19 04/26/19 16:52 16:52 16:52 Sodium 139 Potassium 3.6 Chloride 104 Carbon Dioxide 29 Anion Gap 5 L BUN 14.7 Creatinine 0.9 Est GFR (CKD-EPI)AfAm 94.01 Est GFR (CKD-EPI)NonAf 81.11 Random Glucose 92 Calcium 9.4 Magnesium 2.0 Total Bilirubin 0.3 AST 16 ALT 23 Alkaline Phosphatase 67 Creatine Kinase 213 H Creatine Kinase Index 1.0 CK-MB (CK-2) 2.2 Troponin I < 0.02 Total Protein 7.4 Albumin 3.8 TSH 1.45 04/26/19 16:52 RBC 4.14 MCV 87.7 MCHC 32.5 RDW 13.7 MPV 6.6 L Neutrophils % 71.8 Lymphocytes % 20.9 Monocytes % 6.0 Eosinophils % 0.9 Basophils % 0.4 - RADIOLOGY Radiology Studies Ordered: Category Date Time Status CHEST PA & LAT [RAD] Stat Radiology 04/26/19 16:21 Ordered Medical Decision Making - Medical Decision Making 04/26/19 16:40 38 yo F with hx of anxiety and asthma presents to ED with chest discomfort " for about a week." -labs, ekg -cxr 04/26/19 17:44 labs unremarkable ekg unchanged from prior cxr normal Patient appears very anxious and tearful regarding the pasing of her mother. Patient refused hydroxyzine in ED, states she will take at home. Advised patient to f/u with psych for evaluation of anxiety. Patient verbalized understanding and agrees to plan. *DC/Admit/Observation/Transfer Diagnosis at time of Disposition: Generalized anxiety disorder with panic attacks - Discharge Dispostion Disposition: HOME Condition at time of disposition: Stable Decision to Admit order: No - Prescriptions Prescriptions: Hydroxyzine HCl 25 mg PO TID PRN #30 tablet PRN Reason: Anxiety Hydroxyzine HCl 25 mg PO TID PRN #30 tablet PRN Reason: Anxiety - Referrals Referrals: James Pedroza MD [Primary Care Provider] - Ingrid Graves MD [Non Staff, Medical] - Luis A Mishra [Other Staff,non-medical] - - Patient Instructions Printed Discharge Instructions: Anxiety Disorders, Anxiety and Panic Attacks ( Alternative Therapy), DI for Anxiety -- Adult Additional Instructions: Please take medications as prescribed and follow up with a therapist as discussed. If you develop any new or worsening symptoms, please return to the ER immediately. - Post Discharge Activity
[2019-04-26 17:06] LABS: BASO % 0.4 % (0-2.0); EOS % 0.9 % (0-4.5); HEMATOCRIT 36.3 % (32.4-45.2); HEMOGLOBIN 11.8 GM/dL (10.7-15.3); LYMPH % 20.9 % (8-40); MCH 28.5 pg (25.7-33.7); MCHC 32.5 g/dl (32.0-36.0); MEAN CELL VOLUME 87.7 fl (80-96); MEAN PLT VOLUME 6.6 fl (7.5-11.1); NEUT % 71.8 % (42.8-82.8); PLATELET COUNT 322 K/MM3 (134-434); RBC 4.14 M/mm3 (3.60-5.2); RDW 13.7 % (11.6-15.6); WHITE BLOOD COUNT 12.1 K/mm3 (4.0-10.0)
[2019-04-26 17:27] LABS: ALBUMIN 3.8 g/dl (3.4-5.0); BILIRUBIN,TOTAL 0.3 mg/dL (0.2-1); BLOOD UREA NITROGEN 14.7 mg/dL (7-18); CALCIUM 9.4 mg/dL (8.5-10.1); CREATININE 0.9 mg/dL (0.55-1.3); POTASSIUM 3.6 mmol/L (3.5-5.1); TOT PROT 7.4 g/dl (6.4-8.2)
--- NOTE | 2019-04-28 07:13 | EKG ---
Test Reason : Blood Pressure : / mmHG Vent. Rate : 069 BPM Atrial Rate : 069 BPM P-R Int : 146 ms QRS Dur : 092 ms QT Int : 394 ms P-R-T Axes : 045 090 020 degrees QTc Int : 422 ms NORMAL SINUS RHYTHM RIGHTWARD AXIS INCOMPLETE RIGHT BUNDLE BRANCH BLOCK T WAVE ABNORMALITY, CONSIDER ANTERIOR ISCHEMIA ABNORMAL ECG WHEN COMPARED WITH ECG OF 24-APR-2018 14:27, NO SIGNIFICANT CHANGE WAS FOUND Confirmed by PRAVEEN BROWNING MD ([id number]) on 04/28/2019 7:13:09 AM Referred By: Confirmed By:PRAVEEN BROWNING MD
== END 2019-04-26 18:08 | disposition home or self-care (01) ==
LOC: JER 15:33
DX: F41.9 Anxiety disorder, unspecified (principal); F41.0 Panic disorder [episodic paroxysmal anxiety]
CPT/HCPCS: 36415; 71046-TC-FY; 80053; 82550; 82553; 83735; 84443; 84484; 85025; 93005; 93010; 99284-25

== ENCOUNTER 2019-05-09 21:47 | Emergency (ER) | payer OTHER ==
[2019-05-09 22:00] VITALS: BP 121/67; PULSE 74; TEMP 98; BMI 24.9
--- NOTE | 2019-05-09 22:02 | PDOC ---
Rapid Medical Evaluation Chief Complaint: Pain Time Seen by Provider: 05/09/19 22:00 Medical Evaluation: Allergies Allergy/AdvReac Type Severity Reaction Status Date / Time No Known Allergies Allergy Verified 05/09/19 22:00 Vital Signs Temp Pulse Resp BP Pulse Ox 98 F 74 18 121/67 98 05/09/19 21:58 05/09/19 21:58 05/09/19 21:58 05/09/19 21:58 05/09/19 21:58 05/09/19 22:00 I have performed a brief in-person evaluation of this patient. The patient presents with a chief complaint of: R wrist/hand pain s/p punching a cabinet today Pertinent physical exam findings: R wrist swelling and tenderness on ulnar aspect I have ordered the following: wrist/hand xray The patient will proceed to the ED for further evaluation. Discharge Disposition - Diagnosis Wrist injury Qualifiers: Encounter type: initial encounter Laterality: right Qualified Code(s): S69.91XA - Unspecified injury of right wrist, hand and finger(s), initial encounter - Referrals - Patient Instructions - Post Discharge Activity
--- NOTE | 2019-05-09 22:23 | PDOC ---
History of Present Illness - General History Source: Patient Exam Limitations: No Limitations <Bella Cole - Last Filed: 05/09/19 22:54> <Mahogany Sarah - Last Filed: 05/09/19 23:09> - General Chief Complaint: Pain Stated Complaint: RT WRIST PAIN Time Seen by Provider: 05/09/19 22:00 Past History - Past Medical History Asthma: Yes (CHILDHOOD) COPD: No DVT: No - Immunization History Immunization Up to Date: Yes - Psycho Social/Smoking Cessation Hx Smoking History: Never smoked Have you smoked in the past 12 months: Yes Number of Cigarettes Smoked Daily: 2 'Breaking Loose' booklet given: 02/28/18 Hx Alcohol Use: Yes Drug/Substance Use Hx: No Substance Use Type: None <Bella Cole - Last Filed: 05/09/19 22:54> <Mahogany Sarah - Last Filed: 05/09/19 23:09> - Past Medical History Allergies/Adverse Reactions: Allergies Allergy/AdvReac Type Severity Reaction Status Date / Time No Known Allergies Allergy Verified 05/09/19 22:00 Home Medications: Ambulatory Orders Hydroxyzine HCl 25 mg PO TID PRN #30 tablet 04/26/19 Hydroxyzine HCl 25 mg PO TID PRN #30 tablet 04/26/19 Oxycodone HCl/Acetaminophen [Percocet 10-325 mg Tablet] 1 each PO QID PRN #12 tablet MDD 4 05/09/19 *Physical Exam - Vital Signs Last Vital Signs Temp Pulse Resp BP Pulse Ox 98 F 74 18 121/67 98 05/09/19 21:58 05/09/19 21:58 05/09/19 21:58 05/09/19 21:58 05/09/19 21:58 - Physical Exam General Appearance: No: Apparent Distress Musculoskeletal: positive: Other (+TTP along lateral aspect of R wrist along with swelling to site, no snuffbox tenderness, no other evidence of trauma, RUE neurovascularly intact) Integumentary: negative: Erythema, Ecchymosis, Bruising Neurologic: positive: Alert <Bella Cole - Last Filed: 05/09/19 22:54> - Vital Signs Last Vital Signs Temp Pulse Resp BP Pulse Ox 98 F 74 18 121/67 98 05/09/19 21:58 05/09/19 21:58 05/09/19 21:58 05/09/19 21:58 05/09/19 21:58 <Mahogayn Sarah - Last Filed: 05/09/19 23:09> Procedures - Splinting Splint Location: Right: Wrist Pre-Proc Neuro Vasc Exam: normal Hand-Made Type: orthoglass Splint Type: Yes: Sugar Tong Post-Proc Neuro Vasc Exam: normal Kristofer Bandage: yes Sling: Yes Complications: No <Bella Cole - Last Filed: 05/09/19 22:54> Medical Decision Making - Medical Decision Making 38 y/o F with hx of anxiety presents with R wrist injury after punching wood cabinet today as she was angry. Denies numbness/tingling. Plan: xray to r/o fracture, motrin 05/09/19 22:23 Xray showing distal ulnar fracture Placed in sugar tong splint stable for dc 05/09/19 22:55 <Bella Cole - Last Filed: 05/09/19 22:54> - Medical Decision Making The patient was seen and evaluated in conjunction with midlevel provider under my direct supervision, ancillary studies were reviewed. I agree with the plan as outlined OSBALDO Cole. HPI, workup/dispo as outlined. VS reviewed, wnl. xray with rt distal ulna fx, min displaced, no dislocation. anticipate discharge, pcp followup, return precautions 05/09/19 23:07 <Mahogany Sarah - Last Filed: 05/09/19 23:09> Discharge - Discharge Information Problems reviewed: Yes - Admission No - Additional Discharge Information Prescription Drug Monitoring Program (I-STOP) results: I-STOP reviewed and no issues identified <Bella Cole - Last Filed: 05/09/19 22:54> <Mahogany Sarah - Last Filed: 05/09/19 23:09> - Discharge Information Clinical Impression/Diagnosis: Distal end of ulna fracture, closed Qualifiers: Encounter type: initial encounter Fracture morphology: other fracture Laterality: right Qualified Code(s): S52.691A - Other fracture of lower end of right ulna, initial encounter for closed fracture Condition: Stable Disposition: HOME - Additional Discharge Information Prescriptions: Oxycodone HCl/Acetaminophen [Percocet 10-325 mg Tablet] 1 each PO QID PRN #12 tablet MDD 4 PRN Reason: Severe Pain - Follow up/Referral Referrals: James Pedroza MD [Primary Care Provider] - Mike Almeida MD [Staff Physician] - 2 Days Vern Torres DO [Staff Physician] - 2 Days - Patient Discharge Instructions Patient Printed Discharge Instructions: DI for Forearm Fracture Additional Instructions: Thank you for choosing [facility]. It was a pleasure taking care of you. You may take Motrin 600 mg every 6 hours by mouth as needed for mild to moderate pain. Take Motrin with food. For severe pain, you may take Percocet. This medication can make you constipated for which you may take over the counter Senna tablets as needed. This medication can also make you drowsy so please be cautious with driving or performing heavy physical work. Please follow-up with orthopedics regarding your fracture Return to the Emergency Department if your symptoms worsen or persist, have change in color of extremities, severe pain or other concerning symptoms. - Post Discharge Activity
[2019-05-09] MEDS ORDERED: IBUPROFEN 600 MG TABLET (FP) PO ONE ×2 (22:27→22:44)
== END 2019-05-09 23:24 | disposition home or self-care (01) ==
LOC: JER 21:47
PROC: 2W3CX1Z Immobilization of Right Lower Arm using Splint (ICD-10-PCS; principal; 2019-05-09)
DX: S52.691A Other fracture of lower end of right ulna, initial encounter for closed fracture (principal); W22.8XXA Striking against or struck by other objects, initial encounter; Y93.89 Activity, other specified; Y92.89 Other specified places as the place of occurrence of the external cause; Y99.8 Other external cause status; F41.9 Anxiety disorder, unspecified
CPT/HCPCS: 29126; 73110-TC-RT-FY; 73130-TC-RT-FY; 99282-25

== ENCOUNTER 2021-04-09 21:13 | Emergency (ER) | payer OTHER ==
[2021-04-09 21:28] VITALS: TEMP 97.9; BMI 24.9
[2021-04-09] MEDS ORDERED: ACETAMINOPHEN 500 MG TABLET (FP) PO ONE (21:54)
[2021-04-09] MEDS ORDERED: KETOROLAC TROMETHAMINE 30 MG/1 ML VIAL IM ONE (21:54)
[2021-04-09] MEDS ORDERED: KETOROLAC TROMETHAMINE 30 MG/1 ML VIAL ONE (22:13)
[2021-04-09] MEDS ORDERED: ACETAMINOPHEN 325 MG TABLET (FP) ONE (22:13)
[2021-04-09] MEDS ORDERED: SODIUM CHLORIDE 0.9% 500 ML INFUS.BAG IV ONE (22:19)
[2021-04-09] MEDS ORDERED: ONDANSETRON 4 MG/2 ML VIAL IVPUSH ONE (22:20)
[2021-04-09] MEDS ORDERED: ONDANSETRON 4 MG/2 ML VIAL ONE (22:31)
[2021-04-10 00:01] VITALS: BP 106/78; PULSE 76
== END 2021-04-10 00:06 | disposition home or self-care (01) ==
LOC: JER 21:13
PROC: 3E0233Z Introduction of Anti-inflammatory into Muscle, Percutaneous Approach (ICD-10-PCS; principal; 2021-04-09)
PROC: 3E033GC Introduction of Other Therapeutic Substance into Peripheral Vein, Percutaneous Approach (ICD-10-PCS; 2021-04-09)
DX: R51.9 Headache, unspecified (principal); M79.10 Myalgia, unspecified site; T50.B95A Adverse effect of other viral vaccines, initial encounter
CPT/HCPCS: 93005; 93010; 99284-25

== ENCOUNTER 2022-05-16 14:45 | Emergency (ER) | payer OTHER ==
[2022-05-16 14:52] VITALS: BP 98/69; PULSE 92; RESP 20; TEMP 98.4; BMI 24.0
[2022-05-16] MEDS ORDERED: KETOROLAC TROMETHAMINE 30 MG/1 ML VIAL IM ONE (15:39)
[2022-05-16] MEDS ORDERED: diazePAM 5 MG TABLET PO ONE (15:39)
[2022-05-16] MEDS ORDERED: ACETAMINOPHEN 500 MG TABLET (FP) PO ONE (15:39)
[2022-05-16] MEDS ORDERED: ACETAMINOPHEN 500 MG TABLET (FP) ONE (15:41)
[2022-05-16] MEDS ORDERED: KETOROLAC TROMETHAMINE 30 MG/1 ML VIAL ONE (15:41)
[2022-05-16] MEDS ORDERED: diazePAM 5 MG TABLET ONE (15:41)
== END 2022-05-16 17:27 | disposition home or self-care (01) ==
LOC: JERFT 14:45
PROC: 3E023GC Introduction of Other Therapeutic Substance into Muscle, Percutaneous Approach (ICD-10-PCS; principal; 2022-05-16)
DX: M79.605 Pain in left leg (principal)
CPT/HCPCS: 99284-25